=== PATIENT | female | born 1995 | race African-American/Black ===

== ENCOUNTER 2021-05-11 21:51 | Emergency (ER) | payer SELFPAY ==
[2021-05-11 21:53] VITALS: BP 153/109; PULSE 101; RESP 20; TEMP 37; O2SAT 100
[2021-05-11] MEDS: AMOXICILLIN/CLAVULANATE K 875-125 MG TAB 1 TABLET PO (22:39)
[2021-05-11] MEDS: HYDROcodone/acetaminophen (*CRX) 5-325 MG TABLET 1 TAB PO (22:39)
--- NOTE | 2021-05-11 22:54 | ED.DENTAL ---
HPI - Dental/Oral General Chief complaint: Dental/Oral Stated complaint: tooth pain Time Seen by Provider: 05/11/21 22:10 History of Present Illness HPI Narrative: Patient is a 24-year-old female who presents ER with dental pain x2 days. Left lower jaw. No swelling. Worse with chewing. No sensitivity to air or fluids. Has not had any drainage. Has not yet seen a dentist. Related Data Allergies Allergy/AdvReac Type Severity Reaction Status Date / Time No Known Allergies Allergy Verified 01/24/16 21:49 Review of Systems Constitutional: Constitutional: Denies chills, Denies fever(s) and Denies weakness ENT: Denies nasal congestion and Denies sore throat Comments: Dental Pain PMFSH Past Medical History Medical History (Updated 05/11/21 @ 22:59 by Jay Diallo MD) Healthy female adult Surgical History Surgical History (Updated 05/11/21 @ 22:56 by Jay Diallo MD) No history of previous surgery Social History Social History (Updated 05/11/21 @ 22:57 by Jay Diallo MD) Smoking status: Never smoker Exam Narrative: GENERAL: Uncomfortable-appearing, well-nourished, and in no acute distress. HEAD: Normocephalic, atraumatic. ENT: Mucous membranes moist. Tenderness at tooth number 22 with hypertrophy and redness to the gum. No drainable abscess. No facial swelling. NECK: Supple. CHEST: Clear to auscultation. No respiratory distress. HEART: Regular rate and rhythm. No murmur heard. Normal peripheral pulses. NEURO: Alert and oriented x3. PSYCH: Normal mood and affect. Course Course Emergency Course: Reynolds and antibiotics here. Discharge home. Vital Signs Vital signs: Vital Signs Temperature 98.6 F 05/11/21 21:53 Pulse Rate 101 H 05/11/21 21:53 Respiratory Rate 20 05/11/21 21:53 Blood Pressure 153/109 H 05/11/21 21:53 Pulse Oximetry 100 05/11/21 21:53 Temperature 98.6 F 05/11/21 21:53 Pulse Rate 101 H 05/11/21 21:53 Respiratory Rate 20 05/11/21 21:53 Blood Pressure 153/109 H 05/11/21 21:53 Pulse Oximetry 100 05/11/21 21:53 Discharge Plan Discharge Clinical Impression: Toothache Patient Disposition: Home, Self-Care Condition: Stable Instructions: Antibiotic Form, Toothache (ED) Additional Instructions: You likely have a developing dental abscess. Take the antibiotics to help with your infection and discomfort. Return to the ER if you cannot breathe, you cannot swallow, you have additional concerns. Follow-up with your dentist for further treatment evaluation. Prescriptions: New amoxicillin-pot clavulanate [Augmentin] 875-125 mg tablet 1 tablet PO Q12H Qty: 20 RF: 0 hydrocodone-acetaminophen 5-325 mg tablet 1 tablet PO Q6H PRN (Reason: pain) Qty: 10 RF: 0 amoxicillin-pot clavulanate [Augmentin] 875-125 mg tablet 1 tablet PO Q12H Qty: 20 RF: 0 Follow-up/Referrals: PHYSICIAN,FINANCIAL SERVICES OFFICER [Primary Care Provider] -
== END 2021-05-11 23:17 | disposition home or self-care (01) ==
PROVIDERS: Emergency Provider Emergency Medicine
DX: K08.89 Other specified disorders of teeth and supporting structures (principal)
CPT/HCPCS: 99283; A9270

== ENCOUNTER 2021-06-01 11:38 | Emergency (ER) | payer SELFPAY ==
[2021-06-01 11:45] VITALS: BP 147/100; PULSE 93; RESP 18; TEMP 36.6; O2SAT 99
[2021-06-01 12:48] VITALS: BP 125/85; PULSE 73; RESP 14; O2SAT 99
[2021-06-01 13:30] VITALS: BP 123/87; PULSE 80; RESP 17; O2SAT 97
[2021-06-01] MEDS: CYCLOBENZAPRINE HCL 10 MG TABLET PO (13:46)
--- NOTE | 2021-06-01 13:50 | ED.GENADULT ---
HPI - General Adult General Chief complaint: Back Pain/Injury Stated complaint: back pain Time Seen by Provider: 06/01/21 12:26 Source: patient Mode of arrival: ambulatory Limitations: no limitations History of Present Illness HPI narrative: Patient is a 25-year-old female presenting with chief complaint of pain to the muscles of her thoracic area this started when she sat up this morning. Patient reports that she has tried to do some stretching but she continues to have the spasming. Patient reports she has not taken any medications at home to alleviate her symptoms. Patient states she has not had any falls or direct traumas. She denies any bony injuries. Patient denies any other symptoms or concerns. Patient denies . Related Data Allergies Allergy/AdvReac Type Severity Reaction Status Date / Time No Known Allergies Allergy Verified 06/01/21 11:47 Review of Systems Review of Systems: CONSTITUTIONAL: Denies fever, chills, or sweats. EYES: Denies visual changes, redness, or discharge. ENT: Denies rhinorrhea, congestion, sore throat, or otalgia. CARDIOVASCULAR: Denies chest pain, palpitations, or edema. RESPIRATORY: Denies cough or dyspnea. GASTROINTESTINAL: Denies abdominal pain, nausea, vomiting, or diarrhea. GENITOURINARY: Denies dysuria or hematuria. SKIN: Denies rash or itching. MUSCULOSKELETAL: Reports upper thoracic muscular pain denies joint pain, or myalgia. NEUROLOGIC: Denies headache, numbness, dizziness, or weakness. PSYCHIATRIC: Denies anxiety or depression. PMFSH Past Medical History Medical History (Updated 06/01/21 @ 13:45 by Woody Naylor PA-C) Healthy female adult Surgical History Surgical History (Updated 05/11/21 @ 22:56 by Jay Diallo MD) No history of previous surgery Social History Social History (Updated 05/11/21 @ 22:57 by Jay Diallo MD) Smoking status: Never smoker Exam Narrative: GENERAL: Well-appearing, well-nourished, and in no acute distress. HEAD: Normocephalic, atraumatic. EYES: PERRLA and EOMI. NECK: Supple. ROM intact CHEST: Clear to auscultation. No respiratory distress. No wheezes rales or rhonchi HEART: Regular rate and rhythm. No murmur heard. Normal peripheral pulses. BACK: No vertebral point tenderness. Pain with palpation of thoracic muscles and movement. ROM intact but rotation and stretching illicit symptoms. EXTREMITIES: Normal range of motion. No edema. SKIN: Warm, dry, no rash. NEURO: No focal deficits. Alert and oriented x3. PSYCH: Normal mood and affect. Course Vital Signs Vital signs: Vital Signs Temperature 97.9 F 06/01/21 11:45 Pulse Rate 93 06/01/21 11:45 Respiratory Rate 18 06/01/21 11:45 Blood Pressure 147/100 H 06/01/21 11:45 Pulse Oximetry 99 06/01/21 11:45 Temperature 97.9 F 06/01/21 11:45 Pulse Rate 88 06/01/21 14:30 Respiratory Rate 20 06/01/21 14:30 Blood Pressure 130/74 06/01/21 14:30 Pulse Oximetry 97 06/01/21 14:30 Medical Decision Making MDM Narrative Medical decision making narrative: patients pain is positional in nature and localized to back without signs of cord compression or cauda equina based on neurological exam, skeletal exam and history. No fever or other significant factors to suggest osteomyelitis or spinal epidural abscess. No symptoms or signs to suggest pain is referred from abdominal or / cardiopulmonary sources. No pulsatile masses noted on exam. Patient ambulates with steady gait and is stable for outpatient management given case findings. Joint decision making xray deffered as no marie tenderness or injury. Vital Signs Vital Signs: Vital Signs Temperature 97.9 F 06/01/21 11:45 Pulse Rate 93 06/01/21 11:45 Respiratory Rate 18 06/01/21 11:45 Blood Pressure 147/100 H 06/01/21 11:45 Pulse Oximetry 99 06/01/21 11:45 Temperature 97.9 F 06/01/21 11:45 Pulse Rate 88 06/01/21 14:30 Respiratory Rate 20 06/01/21 14:30
[2021-06-01 14:30] VITALS: BP 130/74; PULSE 88; RESP 20; O2SAT 97
[2021-06-01] MEDS: KETOROLAC (*BKC) 60 MG/2 ML VIAL IM (14:34)
== END 2021-06-01 14:35 | disposition home or self-care (01) ==
PROVIDERS: Emergency Provider Emergency Medicine
DX: M62.830 Muscle spasm of back (principal)
CPT/HCPCS: 81025; 96372; 99283; A9270; J1885

== ENCOUNTER 2021-08-06 12:54 | Emergency (ER) | payer SELFPAY ==
[2021-08-06 12:56] VITALS: BP 125/78; PULSE 116; RESP 18; TEMP 37.4; O2SAT 100
--- NOTE | 2021-08-06 13:42 | ED.FEVER ---
HPI - Fever General Chief Complaint: Fever Stated Complaint: fever Time Seen by Provider: 08/06/21 13:00 History of Present Illness HPI Narrative: Patient is a 26-year-old female who presents ER with fever. Ongoing for 3 days. Associate with sore throat. No cough. Mild sinus congestion. No known sick contacts. Pain with swallowing but no actual difficulty with swallowing. Last fever this morning. Related Data Allergies Allergy/AdvReac Type Severity Reaction Status Date / Time No Known Allergies Allergy Verified 06/01/21 11:47 Review of Systems Constitutional: Constitutional: Denies chills, Reports fatigue and Reports fever(s) ENT: Denies dysphagia, Denies dizziness, Reports nasal congestion and Reports sore throat Respiratory: Respiratory: Denies cough, Denies dyspnea and Denies wheezing PMFSH Past Medical History Medical History (Updated 08/06/21 @ 14:28 by Jay Diallo MD) Healthy female adult Surgical History Surgical History (Updated 05/11/21 @ 22:56 by Jay Diallo MD) No history of previous surgery Social History Social History (Updated 05/11/21 @ 22:57 by Jay Diallo MD) Smoking status: Never smoker Exam Narrative: GENERAL: Well-appearing, well-nourished, and in no acute distress. HEAD: Normocephalic, atraumatic. ENT: Mucous membranes moist. No tonsillar hypertrophy or exudate. Uvula midline and nonedematous. TMs clear and bulging bilaterally. NECK: Very mild anterior cervical chain lymphadenopathy bilaterally. NEURO: Alert and oriented x3. PSYCH: Normal mood and affect. 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 Discharge home. Vital Signs Vital signs: Vital Signs Temperature 99.4 F 08/06/21 12:56 Pulse Rate 116 H 08/06/21 12:56 Respiratory Rate 18 08/06/21 12:56 Blood Pressure 125/78 08/06/21 12:56 Pulse Oximetry 100 08/06/21 12:56 Temperature 99.4 F 08/06/21 12:56 Pulse Rate 116 H 08/06/21 12:56 Respiratory Rate 18 08/06/21 12:56 Blood Pressure 125/78 08/06/21 12:56 Pulse Oximetry 100 08/06/21 12:56 MDM - Fever Lab Data Labs: Influenza A Screen Negative Reference Range: Negative Influenza B Screen Negative Reference Range: Negative Strep Screen Presumptive Negative *(Reference Range: Negative)* Discharge Plan Discharge Clinical Impression: Upper respiratory infection Patient Disposition: Home, Self-Care Condition: Stable Instructions: Upper Respiratory Infection (ED) Additional Instructions: Return the ER if you have inability to swallow, you lose consciousness, cannot breathe, you have additional concerns. Take Tylenol and ibuprofen as needed for fever. Buy some [id number] lozenges for sore throat. Prescriptions: No Action naproxen 500 mg tablet 500 mg PO BID PRN (Reason: pain) Qty: 20 RF: 0 cyclobenzaprine 10 mg tablet 10 mg PO TID PRN (Reason: muscle spasm) Qty: 20 RF: 0 Follow-up/Referrals: Michael Fishman MD [Physician] - 1 Week PHYSICIAN,INDUSTRIAL YARD BRAKE COUPLER [Primary Care Provider] -
== END 2021-08-06 14:44 | disposition home or self-care (01) ==
PROVIDERS: Emergency Provider Emergency Medicine
DX: J06.9 Acute upper respiratory infection, unspecified (principal)
CPT/HCPCS: 87081; 87804; 87880; 99283

== ENCOUNTER 2021-09-01 14:36 | Emergency (ER) | payer SELFPAY ==
[2021-09-01 14:50] VITALS: BP 141/89; PULSE 77; RESP 16; TEMP 36.9; O2SAT 100
--- NOTE | 2021-09-01 15:01 | ED.DENTAL ---
HPI - Dental/Oral General Chief complaint: Dental/Oral Stated complaint: dental pain Time Seen by Provider: 09/01/21 14:50 Source: patient Mode of arrival: ambulatory Limitations: no limitations History of Present Illness HPI Narrative: Patient presents to the emergency department for tooth ache present since yesterday. She was seen at urgent care for this and given prescription for antibiotics. She has not filled these yet. Reports her pain has not been relieved with [id number] medications which prompted her to be seen again. Denies fever, erythema, or edema. MD Complaint: tooth pain Location: Tooth # (21) Related Data Allergies Allergy/AdvReac Type Severity Reaction Status Date / Time No Known Allergies Allergy Verified 09/01/21 14:53 Review of Systems Review of Systems: CONSTITUTIONAL: Denies fever ENT: Reports dentalgia All systems reviewed & are unremarkable except as noted in HPI and below PMFSH Past Medical History Medical History (Updated 09/01/21 @ 15:04 by Samira Christiansen PA-C) Healthy female adult Surgical History Surgical History (Updated 05/11/21 @ 22:56 by Jay Diallo MD) No history of previous surgery Social History Social History (Updated 05/11/21 @ 22:57 by Jay Diallo MD) Smoking status: Never smoker Exam Narrative: GENERAL: Well-appearing, well-nourished, and in no acute distress. HEAD: Normocephalic, atraumatic. EYES: EOMI. ENT: Mucous membranes moist. Oropharynx without tonsillar hypertrophy exudate or other lesions. Tooth #21 tender to palpation, no surrounding erythema or edema to suggest abscess. No trismus NECK: Supple. No adenopathy or masses. CHEST: Clear to auscultation. No respiratory distress. No wheezes rales or rhonchi HEART: Regular rate and rhythm. No murmur heard. Normal peripheral pulses. EXTREMITIES: Normal range of motion. No edema. SKIN: Warm, dry, no rash. NEURO: No focal deficits. Alert and oriented x3. PSYCH: Normal mood and affect Course Vital Signs Vital signs: Vital Signs Temperature 98.4 F 09/01/21 14:50 Pulse Rate 77 09/01/21 14:50 Respiratory Rate 16 09/01/21 14:50 Blood Pressure 141/89 H 09/01/21 14:50 Pulse Oximetry 100 09/01/21 14:50 Temperature 98.4 F 09/01/21 14:50 Pulse Rate 77 09/01/21 14:50 Respiratory Rate 16 09/01/21 14:50 Blood Pressure 141/89 H 09/01/21 14:50 Pulse Oximetry 100 09/01/21 14:50 MDM - Dental/Oral MDM Narrative Medical decision making narrative: Patient presents to the emergency department for dentalgia present since yesterday. She is afebrile and nontoxic-appearing. No evidence for abscess on exam. Patient was started on oral antibiotics by urgent care. Encouraged to start these and take them as prescribed. She is to follow-up with a dentist. Will be given short course of Toradol as needed for pain. She was given warnings to return to the ER Critical Care Time Critical Care Time Critical Care Time: No Discharge Plan Discharge Clinical Impression: Toothache Patient Disposition: Home, Self-Care Condition: Stable Instructions: Antibiotic Form, Toothache (ED) Additional Instructions: Return to the Emergency Department if you experience fever >101, increasing swelling and redness of your tooth, or any other symptoms that are concerning to you Take antibiotic as prescribed. Tylenol or Toradol as needed for pain. If you take Toradol, do not take other anti-inflammatories (example: Aleve, ibuprofen, naproxen, Advil, etc.). You can apply a dab of clove oil to a Qtip and apply to the tooth to help numb the area Follow up with a dentist. Dr. Stan Nash at [facility] if needed Prescriptions: New ketorolac 10 mg tablet 10 mg PO Q6H PRN (Reason: pain) 3 Days Qty: 14 RF: 0 No Action naproxen 500 mg tablet 500 mg PO BID PRN (Reason: pain) Qty: 20 RF: 0 cyclobenzaprine 10 mg tablet 10 mg PO TID PRN (Reas
[2021-09-01] MEDS: ACETAMINOPHEN 500 MG TABLET 1000 MG PO (15:06)
[2021-09-01] MEDS: KETOROLAC (*BKC) 60 MG/2 ML VIAL IM (15:06)
[2021-09-01 15:12] VITALS: BP 140/84; PULSE 74; RESP 16; O2SAT 100
== END 2021-09-01 15:12 | disposition home or self-care (01) ==
PROVIDERS: Emergency Provider Emergency Medicine
DX: K08.89 Other specified disorders of teeth and supporting structures (principal)
CPT/HCPCS: 96372; 99283; A9270; J1885

== ENCOUNTER 2023-08-15 22:06 | Emergency (ER) | payer SELFPAY ==
[2023-08-15 22:14] VITALS: BP 128/92; PULSE 96; RESP 15; TEMP 36.4; O2SAT 98
--- NOTE | 2023-08-16 02:56 | ED.GENADULT ---
HPI - General Adult General Chief complaint: Skin/Abscess/Foreign Body Stated complaint: abcess Time Seen by Provider: 08/16/23 02:46 History of Present Illness HPI narrative: Patient is a 28-year-old female who presents to the emergency department this evening complaining perirectal abscess. Patient states that initially she noticed it a few days ago and thought that it was getting better, however, today the pain was so severe causing her discomfort while walking at work and specially when sitting down. Patient states that she is unable to sit regularly she has to lean on 1 side versus the other to relieve some of the pressure that she feels. She denies any previous history of pilonidal cyst or any abscesses requiring drainage. Patient denies any fevers or chills, any recent nausea or vomiting, constipation or diarrhea, melena or hematochezia. There are no other modifying, alleviating, or precipitating factors at this time. Related Data Allergies Allergy/AdvReac Type Severity Reaction Status Date / Time No Known Allergies Allergy Verified 08/15/23 22:18 Review of Systems Review of Systems: All systems are reviewed and are negative unless stated otherwise in the HPI. [facility] Past Medical History Medical History Healthy female adult Surgical History Surgical History No history of previous surgery Social History Social History Smoking status: Never smoker Exam Narrative: General: Alert, awake, afebrile, in no acute distress. HEENT: PERRL, no rhinorrhea, no post nasal drip, oropharynx clear. Neck: Trachea midline, no JVD, no lymphadenopathy. Cardiovascular: Regular rate and rhythm, no murmurs, rubs or gallops, no peripheral edema. Respiratory: Clear to auscultation bilaterally, no tachypnea, no wheezing, no rhonchi, no rubs, no respiratory distress. Abdomen: Soft, nontender, nondistended, no rebound, no guarding, no peritoneal signs. Rectal: Induration and tenderness to palpation noted along the midline buttocks region, area is well above the rectum. Musculoskeletal: No joint swelling or deformity, normal muscle tone. Skin: No rashes or petechia, no signs of infection. Psychiatric: Alert and oriented, normal behavior and judgment for situation. Neurological: Alert and oriented to person, place, and time. Follows all commands. No focal deficits, speech is clear and fluent. Course Vital Signs Vital signs: Vital Signs Temperature 97.6 F 08/15/23 22:14 Pulse Rate 96 08/15/23 22:14 Respiratory Rate 15 08/15/23 22:14 Blood Pressure 128/92 H 08/15/23 22:14 Pulse Oximetry 98 08/15/23 22:14 Temperature 97.6 F 08/15/23 22:14 Pulse Rate 81 08/16/23 04:38 Respiratory Rate 16 08/16/23 04:38 Blood Pressure 124/66 08/16/23 04:38 Pulse Oximetry 100 08/16/23 04:38 Medical Decision Making MDM Narrative Medical decision making narrative: The patient was evaluated by myself in the emergency department. History is obtained from patient who is an independent historian and physical exam was performed. External medical records were reviewed at this time. Differential diagnosis considerations include cellulitis, abscess, and pilonidal cyst. Comorbidities impacting this visit include none. Incision and Drainage Procedure Note Abscess Location: Midline upper buttocks/perirectal region Anesthesia: 1% lidocaine w/ epi Drainage amount/type: Purulent yellow Wound care (packing/type): None Specimens Removed: None Estimated Blood Loss: None Risks and benefits of the procedure were discussed including injury to nerve, vessel or underlying structures and an informed verbal consent was obtained.? Bedside ultrasound was used to identify the abscess. The affected skin area of the abscess was cleaned with a Betadine soluti
[2023-08-16 04:38] VITALS: BP 124/66; PULSE 81; RESP 16; O2SAT 100
== END 2023-08-16 04:39 | disposition home or self-care (01) ==
PROVIDERS: Emergency Provider Emergency Medicine
DX: K61.1 Rectal abscess (principal)
CPT/HCPCS: 46040; 99283

== ENCOUNTER 2024-12-17 14:33 | Emergency (ER) | payer SELFPAY ==
--- OUTSIDE RECORDS SUMMARY | 2024-12-17 14:37 | XMS_ITS | Clinical Summary ---
Author Organization [facility] [address] Address [address] [place] [id number] Care Team Providers Care Aircraft Shipping Checker Name Role Phone Unknown, Notinfprudencio Primary Care Provider Unavail able Allergies No known active allergies Medications Estarylla 0.25-35 mg-mcg per tablet Take 1 tablet by mouth daily 08/14/2021 Active Active Problems No known active problems Family History Relation Name Status Comments Mother Alive Sister 1 Alive Sister 2 Alive Sister 3 Alive Social History Tobacco Use Types Packs/Day Years Used Date Smoking Tobacco: Never Personal Safety Answer Date Recorded Getting School Help Needed Not on file 07/13 Comments Unknown Sex and Gender Information Value Date Recorded Sex Assigned at Not on file 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 Gender Identity Not on file Sexual Orientation Not on file Obstetrics History Last Filed Vital Signs Vital Sign Reading Time Taken Comments Blood Pressure 110/76 09/01/2021 11:43 AM CDT Pulse 86 09/01/2021 11:43 AM CDT Temperature 37.1 C (98.8 F) 09/01/2021 11:43 AM CDT Respiratory Rate - - Oxygen Saturation 96% 09/01/2021 11:43 AM CDT Inhaled Oxygen Concentration - - Weight 69.2 kg (152 lb 9.6 oz) 09/01/2021 11:43 AM CDT Height 157.5 cm (5' 2) 09/01/2021 11:43 AM CDT Body Mass Index 27.91 09/01/2021 11:43 AM CDT Plan of Treatment Not on file Care Teams Aircraft Shipping Checker Relationship Specialty Start Date End Date Unknown, Gregorio PCP - General 09/01/21
--- OUTSIDE RECORDS SUMMARY | 2024-12-17 14:37 | XMS_ITS | Referral Summary ---
Author Organization [facility] [address] Address [facility] [place] [address] Care Team Providers Care Salvage Winder And Inspector Name Role Phone Unknown, Notinfprudencio Primary Care Provider Unavail able Allergies No known active allergies Medications Estarylla 0.25-35 mg-mcg per tablet Take 1 tablet by mouth daily 08/14/2021 Active Active Problems No known active problems Social History Tobacco Use Types Packs/Day Years Used Date Smoking Tobacco: Never Personal Safety Answer Date Recorded Getting School Help Needed Not on file 07/13 Comments Unknown Sex and Gender Information Value Date Recorded Sex Assigned at Not on file 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
--- NOTE | 2024-12-17 14:41 | ED_ITS ---
HPI - Wound/Laceration General Chief Complaint: Wound/Laceration <Camille Corona APRN - Last Filed: 12/17/24 14:44> Stated Complaint: ATTACKED BY MOTHERS CAT <Camille Corona APRN - Last Filed: 12/17/24 14:44> Time Seen by Provider: 12/17/24 14:40 <Camille Corona APRN - Last Filed: 12/17/24 14:44> Focused HPI: Patient is a 29 year old female who presents to the ER after being attacked by CT. She reports she went in to console her mother's cat when the cat jumped on her head, scratching and biting her. Patient endorses lacerations to her chin, above her left upper eye, above her right upper lip, behind both ears, and on her chest. She denies any pertinent medical history relevant to this ER visit. Patient is unsure when she last received a tetanus shot. She endorses significant pain to her face at the time of examination. GENERAL: Ill-appearing, well-nourished, and in mild distress d/t pain. HEAD: Normocephalic, multiple laceration to top of scalp, bottom of chin, above left upper eye, above right upper lip, behind both ears, and on her chest. All sites are oozing, but bleeding is controlled. CHEST: Clear to auscultation. ?No respiratory distress. HEART: Regular rate and rhythm.? NEURO: ?Alert and oriented x3. Patient screened in triage and initial orders placed.? ?Additional care and disposition to be based upon?diagnostic testing and treatment. <Camille Corona APRN - Last Filed: 12/17/24 14:44> History of Present Illness HPI narrative: per HPI <Susan Donaldson MD - Last Filed: 12/17/24 21:49> Related Data Allergies/Adverse Reactions: Allergies Allergy/AdvReac Type Severity Reaction Status Date / Time No Known Allergies Allergy Verified 12/17/24 14:44 <Camille Corona APRN - Last Filed: 12/17/24 14:44> Review of Systems Review of Systems: All systems reviewed & are unremarkable except as noted in HPI and below <Susan Donaldson MD - Last Filed: 12/17/24 21:49> PMFSH Past Medical History Medical History: Medical History Healthy female adult <Camille Corona APRN - Last Filed: 12/17/24 14:44> Surgical History Surgical History: Surgical History No history of previous surgery <Camille Corona APRN - Last Filed: 12/17/24 14:44> Social History Social History: Social History Smoking status: Never smoker <Camille Corona APRN - Last Filed: 12/17/24 14:44> Exam Narrative: EXAMINATION OF ORGAN SYSTEMS/BODY AREAS: Constitutional: Vital signs per nursing GENERAL: Appears uncomfortable HEAD: Long deep laceration across scalp EYES: EOMI, conjunctiva normal ENT: Multiple lacerations across face LUNGS: Nonlabored breathing. HEART: [Regular rate and rhythm] ABD: [Soft], [nontender to palpation] EXT: Normal range of motion SKIN: Multiple lacerations across face, scalp, arms, chest NEURO: [Alert and oriented x 3. No gross focal sensory or strength deficits.] PSYCH: Normal affect <Susan Donaldson MD - Last Filed: 12/17/24 21:49> Course Vital Signs Vital signs: Vital Signs Temperature 97.3 F L 12/17/24 14:42 Pulse Rate 86 12/17/24 14:42 Respiratory Rate 16 12/17/24 14:42 Blood Pressure 145/82 H 12/17/24 14:42 Pulse Oximetry 99 12/17/24 14:42 Temperature 97.3 F L 12/17/24 14:42 Pulse Rate 86 12/17/24 14:42 Respiratory Rate 16 12/17/24 14:42 Blood Pressure 145/82 H 12/17/24 14:42 Pulse Oximetry 99 12/17/24 14:42 <Camille Corona APRN - Last Filed: 12/17/24 14:44> Vital Signs Temperature 97.3 F L 12/17/24 14:42 Pulse Rate 86 12/17/24 14:42 Respiratory Rate 16 12/17/24 14:42 Blood Pressure 145/82 H 12/17/24 14:42 Pulse Oximetry 99 12/17/24 14:42 Temperature 97.3 F L 12/17/24 14:42 Pulse Rate 86 12/17/24 14:42 Respiratory Rate 16 12/17/24 14:42 Blood Pressure 145/82 H 12/17/24 14:42 Pulse Oximetry 99 12/17/24 14:42 <Susan Donaldson MD - Last Filed: 12/17/24 21:49> Procedures Laceration Laceration 1: Date: 12/17/24 <Susan Donaldson MD - Last Filed: 12/17/24 21:49> Site: scalp <Susan Donaldson MD - Last Filed: 12/17/24 21:49> Size (cm): 10 <Susan Donaldson MD - Last Filed: 12/17/24 21:49> Description: linear <Susan Donaldson MD - Last Filed: 12/17/24 21:49> Depth: simple, single layer <Susan Donaldson MD - Last Filed: 12/17/24 21:49> Local Anesthetic: lidocaine 1% <Susan Donaldson MD - Last Filed: 12/17/24 21:49> Amount of anesthesia used (mL): 3 <Susan Donaldson MD - Last Filed: 12/17/24 21:49> Pre-repair: wound explored, irrigated, irrigated extensively and deep structures intact <Susan Donaldson MD - Last Filed: 12/17/24 21:49> ====== Skin Level ======: Skin layer closed with: kirsten <Ssuan Donaldson MD - Last Filed: 12/17/24 21:49> Number of sutures: 9 <Susan Donaldson MD - Last Filed: 12/17/24 21:49> ====== Subcutaneous Layer ======: ====== Muscle Layer ======: ====== Tendon Layer ======: Laceration 2: Date: 12/17/24 <Susan Donaldson MD - Last Filed: 12/17/24 21:49> Site: face <Susan Donaldson MD - Last Filed: 12/17/24 21:49> Side (If applicable): right <Susan Donaldson MD - Last Filed: 12/17/24 21:49> Size (cm): 1 <Susan Donaldson MD - Last Filed: 12/17/24 21:49> Description: linear <Susan Donaldson MD - Last Filed: 12/17/24 21:49> Depth: simple, single layer <Susan Donaldson MD - Last Filed: 12/17/24 21:49> Local Anesthetic: lidocaine 1% <Susan Donaldson MD - Last Filed: 12/17/24 21:49> Amount of anesthesia used (mL): 1 <Susan Donaldson MD - Last Filed: 12/17/24 21:49> Pre-repair: wound explored, irrigated, irrigated extensively and deep structures intact <Susan Donaldson MD - Last Filed: 12/17/24 21:49> ====== Skin Level ======: Skin layer closed with: vicryl <Susan Donaldson MD - Last Filed: 12/17/24 21:49> Size (cm): 5-0 <Susan Donaldson MD - Last Filed: 12/17/24 21:49> Number of sutures: 1 <Susan Donaldson MD - Last Filed: 12/17/24 21:49> Technique: simple, interrupted <Susan Donaldson MD - Last Filed: 12/17/24 21:49> ====== Subcutaneous Layer ======: ====== Muscle Layer ======: ====== Tendon Layer ======: Laceration 3: Date: 12/17/24 <Susan Donaldson MD - Last Filed: 12/17/24 21:49> Site: face <MD Andrew Valdez Last Filed: 12/17/24 21:49> Side (If applicable): right <MD Andrew Valdez Last Filed: 12/17/24 21:49> Size (cm): 1 <Susan Donaldson MD - Last Filed: 12/17/24 21:49> Description: linear <Susan Donaldson MD - Last Filed: 12/17/24 21:49> Depth: simple, single layer <Susan Donaldson MD - Last Filed: 12/17/24 21:49> Local Anesthetic: lidocaine 1% <Susan Donaldson MD - Last Filed: 12/17/24 21:49> Amount of anesthesia used (mL): 1 <Susan Donaldson MD - Last Filed: 12/17/24 21:49> Pre-repair: wound explored, irrigated, irrigated extensively, deep structures intact and wound margins revised <Susan Donaldson MD - Last Filed: 12/17/24 21:49> ====== Skin Level ======: Skin layer closed with: vicryl <Susan Donaldson MD - Last Filed: 12/17/24 21:49> Size (cm): 5-0 <Susan Donaldson MD - Last Filed: 12/17/24 21:49> Number of sutures: 1 <Susan Donaldson MD - Last Filed: 12/17/24 21:49> Technique: simple, interrupted <Susan Donaldson MD - Last Filed: 12/17/24 21:49> ====== Subcutaneous Layer ======: ====== Muscle Layer ======: ====== Tendon Layer ======: Laceration 4: Date: 12/17/24 <Susan Donaldson MD - Last Filed: 12/17/24 21:49> Site: face <Susan Donaldson MD - Last Filed: 12/17/24 21:49> Size (cm): 1 <Susan Donaldson MD - Last Filed: 12/17/24 21:49> Description: linear <Susan Donaldson MD - Last Filed: 12/17/24 21:49> Depth: simple, single layer <Susan Donaldson MD - Last Filed: 12/17/24 21:49> Local Anesthetic: lidocaine 1% <Susan Donaldson MD - Last Filed: 12/17/24 21:49> Amount of anesthesia used (mL): 1 <Susan Donaldson MD - Last Filed: 12/17/24 21:49> Pre-repair: wound explored, irrigated, irrigated extensively and deep structures intact <Susan Donaldson MD - Last Filed: 12/17/24 21:49> ====== Skin Level ======: Skin layer closed with: vicryl <Susan Donaldson MD - Last Filed: 12/17/24 21:49> Size (cm): 5-0 <Susan Donaldson MD - Last Filed: 12/17/24 21:49> Number of sutures: 1 <Susan Dnoaldson MD - Last Filed: 12/17/24 21:49> Technique: simple, interrupted <Susan Donaldson MD - Last Filed: 12/17/24 21:49> ====== Subcutaneous Layer ======: ====== Muscle Layer ======: ====== Tendon Layer ======: Laceration 5: Date: 12/17/24 <Susan Donaldson MD - Last Filed: 12/17/24 21:49> Site: face <Susan Donaldson MD - Last Filed: 12/17/24 21:49> Side (If applicable): right <Susan Donaldson MD - Last Filed: 12/17/24 21:49> Size (cm): 1 <Susan Donaldson MD - Last Filed: 12/17/24 21:49> Description: linear <Susan Donaldson MD - Last Filed: 12/17/24 21:49> Depth: simple, single layer <Susan Donaldson MD - Last Filed: 12/17/24 21:49> Local Anesthetic: lidocaine 1% <Susan Donaldson MD - Last Filed: 12/17/24 21:49> Amount of anesthesia used (mL): 1 <Susan Donaldson MD - Last Filed: 12/17/24 21:49> Pre-repair: wound explored, irrigated, irrigated extensively and deep structures intact <Susan Donaldson MD - Last Filed: 12/17/24 21:49> ====== Skin Level ======: Skin layer closed with: vicryl <Susan Donaldson MD - Last Filed: 12/17/24 21:49> Size (cm): 5-0 <Susan Donaldson MD - Last Filed: 12/17/24 21:49> Number of sutures: 1 <Susan Donaldson MD - Last Filed: 12/17/24 21:49> Technique: simple, interrupted <Susan Donaldson MD - Last Filed: 12/17/24 21:49> ====== Subcutaneous Layer ======: ====== Muscle Layer ======: ====== Tendon Layer ======: MDM - Wound/Laceration MDM Narrative Medical decision making narrative: Patient presents after being scratched by her family's cat, her family was temporarily moving in to her apartment because there AC is broken, they brought their cat and since the cat was terrified in an unfamiliar environment with dogs, the cat scratched her when she tried to move her away from the dogs. Extensive scratches all over face, scalp, arms, chest They're cleaned extensively here, given my concern for scarring to the face, I did feel benefits outweighed risks of closure, discussed this with patient who agrees with shared decision-making she would like to have sutures to help prevent scarring and I will start her on antibiotics. See procedure notes Antibiotics, tetanus given, follow-up to PCP with strict return precautions. Patient tolerated this well, wounds well approximated. <Susan Donaldson MD - Last Filed: 12/17/24 21:49> Discharge Plan Discharge Clinical Impression: Laceration, Cat scratch of face <Camille Corona APRN - Last Filed: 12/17/24 14:44> Patient Disposition: Home <KENYETTA Rohdes Last Filed: 12/17/24 14:44> Condition: Stable <Camille Corona APRN - Last Filed: 12/17/24 14:44> Instructions: Antibiotic Form, Care For Your Stitches (ED), Staple Care (ED) <KENYETTA Rohdes Last Filed: 12/17/24 14:44> Additional Instructions: You had 9 kirsten placed which she will need to come out in 7-10 days, you can either come back here or go to any urgent care or your own primary care doctor. Try taking the medications as prescribed, and you can always return to the emergency room for any further issues. <Camille Corona APRN - Last Filed: 12/17/24 14:44> Patient Language: Turkish <Camille Corona APRN - Last Filed: 12/17/24 14:44> Prescriptions: New amoxicillin-pot clavulanate 200-28.5 mg tablet,chewable 4 tablet PO BID 5 Days Qty: 40 0RF ibuprofen [Advil Monroe Strength] 100 mg tablet,chewable 400 mg PO Q6-8H PRN (Reason: pain) Qty: 60 0RF oxycodone 5 mg/5 mL solution 5 mg PO Q6H PRN (Reason: pain) Qty: 30 0RF No Action sulfamethoxazole-trimethoprim 200-40 mg/5 mL suspension 20 ml PO BID 7 Days Qty: 280 0RF naproxen 500 mg tablet 500 mg PO BID PRN (Reason: pain) Qty: 20 0RF cyclobenzaprine 10 mg tablet 10 mg PO TID PRN (Reason: muscle spasm) Qty: 20 0RF ketorolac 10 mg tablet 10 mg PO Q6H PRN (Reason: pain) 3 Days Qty: 14 0RF <Camille Corona APRN - Last Filed: 12/17/24 14:44> Follow-up/Referrals: PHYSICIAN,FIELD WORKER [Primary Care Provider] - Alessio Ayala MD [Physician] - 2 Days <Camille Corona APRN - Last Filed: 12/17/24 14:44>
[2024-12-17 14:42] VITALS: BP 145/82; PULSE 86; RESP 16; TEMP 36.3; O2SAT 99
--- OUTSIDE RECORDS SUMMARY | 2024-12-17 15:07 | XMS_ITS | Clinical Summary ---
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
--- OUTSIDE RECORDS SUMMARY | 2024-12-17 15:07 | XMS_ITS | Referral Summary ---
Author Organization 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
[2024-12-17] MEDS: HYDROcodone/acetaminophen (*CRX) 5-325 MG TABLET 1 TAB PO (15:12)
--- NOTE | 2024-12-17 15:15 | PC.NURSE ---
patient requesting antibiotic prescription for home to be liquid form, aware
[2024-12-17] MEDS: TETANUS,DIPHTHERIA,AC PERTUSSIS ADULT (0.5 ML) BOOSTRIX IM (16:31)
== END 2024-12-17 16:38 | disposition home or self-care (01) ==
PROVIDERS: Emergency Provider Emergency Medicine
DX: S01.81XA Laceration without foreign body of other part of head, initial encounter (principal); S01.01XA Laceration without foreign body of scalp, initial encounter; Z23 Encounter for immunization; W55.03XA Scratched by cat, initial encounter
CPT/HCPCS: 12004; 12013; 90471; 90715; 99283; A9270

== ENCOUNTER 2024-12-31 11:28 | Emergency (ER) | payer SELFPAY ==
[2024-12-31 11:40] VITALS: BP 125/77; PULSE 81; RESP 16; TEMP 36.4; O2SAT 100
--- OUTSIDE RECORDS SUMMARY | 2024-12-31 11:42 | XMS_ITS | Clinical Summary ---
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
--- OUTSIDE RECORDS SUMMARY | 2024-12-31 12:15 | XMS_ITS | Clinical Summary ---
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
--- NOTE | 2024-12-31 12:23 | ED.GENADULT ---
HPI - General Adult General Chief complaint: Skin/Abscess/Foreign Body Stated complaint: kirsten removed from head Time Seen by Provider: 12/31/24 12:01 History of Present Illness HPI narrative: This is a 29-year-old female that presents to the ED for staple removal. Patient states she was attacked by a cat 2 weeks ago and since in this ED for evaluation 9 kirsten placed to her head. She states that it has been healing well. Denies fevers, chills, change in vision, headache. Related Data Allergies Allergy/AdvReac Type Severity Reaction Status Date / Time No Known Allergies Allergy Verified 12/17/24 14:44 Review of Systems Review of Systems: Gen.: Denies fevers or chills Eyes: Denies eye pain or visual change ENT: Denies congestion Respiratory: Denies shortness of breath or cough CV: Denies chest pain or palpitations GI: Denies abdominal pain nausea, emesis or diarrhea denies burning, urgency, frequency or hematuria Musculoskeletal: Denies back pain or muscle pain Neuro: Denies numbness, tingling, weakness or focal weakness Skin: Denies rash Except as documented, all other systems reviewed and negative [facility] Past Medical History Medical History Healthy female adult Surgical History Surgical History No history of previous surgery Social History Social History Smoking status: Never smoker Exam Narrative: APPEARANCE: No acute distress, nontoxic, resting in bed EYES: EOMI HEENT: Normocephalic, 9 stables to anterior scalp, laceration c/d/i RESPIRATORY: No respiratory distress CARDIOVASCULAR: Appears well perfused MUSCULOSKELETAl: Moves all extremities. NEURO: Awake and alert SKIN:: as above Course Vital Signs Vital signs: Vital Signs Temperature 97.6 F 12/31/24 11:40 Pulse Rate 81 12/31/24 11:40 Respiratory Rate 16 12/31/24 11:40 Blood Pressure 125/77 12/31/24 11:40 Pulse Oximetry 100 12/31/24 11:40 Oxygen Delivery Room Air 12/31/24 11:40 Temperature 97.6 F 12/31/24 11:40 Pulse Rate 81 12/31/24 11:40 Respiratory Rate 16 12/31/24 11:40 Blood Pressure 125/77 12/31/24 11:40 Pulse Oximetry 100 12/31/24 11:40 Oxygen Delivery Room Air 12/31/24 11:40 Medical Decision Making MDM Narrative Medical decision making narrative: 29-year-old female presenting to the ED for staple removal. Laceration was well healed. [place] removed. Patient was advised to follow up PCP in the next week for evaluation if needed. Patient was agreeable to plan. Given strict return precautions. Vital Signs Vital Signs: Vital Signs Temperature 97.6 F 12/31/24 11:40 Pulse Rate 81 12/31/24 11:40 Respiratory Rate 16 12/31/24 11:40 Blood Pressure 125/77 12/31/24 11:40 Pulse Oximetry 100 12/31/24 11:40 Oxygen Delivery Room Air 12/31/24 11:40 Temperature 97.6 F 12/31/24 11:40 Pulse Rate 81 12/31/24 11:40 Respiratory Rate 16 12/31/24 11:40 Blood Pressure 125/77 12/31/24 11:40 Pulse Oximetry 100 12/31/24 11:40 Oxygen Delivery Room Air 12/31/24 11:40 Discharge Plan Discharge Clinical Impression: Encounter for removal of kirsten, Cat scratch of face Patient Disposition: Home Condition: Stable Instructions: Antibiotic Form Patient Language: Micronesian Prescriptions: No Action sulfamethoxazole-trimethoprim 200-40 mg/5 mL suspension 20 ml PO BID 7 Days Qty: 280 0RF amoxicillin-pot clavulanate 200-28.5 mg tablet,chewable 4 tablet PO BID 5 Days Qty: 40 0RF ibuprofen [Advil [place] Strength] 100 mg tablet,chewable 400 mg PO Q6-8H PRN (Reason: pain) Qty: 60 0RF oxycodone 5 mg/5 mL solution 5 mg PO Q6H PRN (Reason: pain) Qty: 30 0RF naproxen 500 mg tablet 500 mg PO BID PRN (Reason: pain) Qty: 20 0RF cyclobenzaprine 10 mg tablet 10 mg PO TID PRN (Reason: muscle spasm) Qty: 20 0RF ketorolac 10 mg tablet 10 mg PO Q6H PRN (Reason: pain) 3 Days Qty: 14 0RF Follow-up/Referrals: PHYSICIAN,UTILITY TELLER [Primary Care Provider] -
== END 2024-12-31 12:33 | disposition home or self-care (01) ==
PROVIDERS: Emergency Provider Student in an Organized Health Care Education/Training Program
DX: S01.01XD Laceration without foreign body of scalp, subsequent encounter (principal); W55.03XD Scratched by cat, subsequent encounter
CPT/HCPCS: 15853; 99282